=== PATIENT | female | born 1990 | race Caucasian/White ===

== ENCOUNTER 2016-05-16 21:46 | Inpatient (IN) | payer OTHER ==
[2016-05-16] MEDS ORDERED: OXYTOCIN IN LR 500 ML IV ONE (22:00)
[2016-05-16] MEDS ORDERED: LACTATED RINGERS 1,000 ML IV PRN (22:00)
[2016-05-16] MEDS ORDERED: MINERAL OIL 25 ML BOT ONE (22:04)
[2016-05-16] MEDS ORDERED: PUMP TUBING ONE (22:04)
[2016-05-16] MEDS ORDERED: LIDOCAINE Viscous 2% 15 ML UDCUP ONE (22:04)
[2016-05-16] MEDS ORDERED: LIDOCAINE 1% (PRES FREE) 30 ML VIAL ONE (22:04)
[2016-05-16] MEDS ORDERED: IV START KIT ONE (22:04)
[2016-05-16] MEDS ORDERED: OXYTOCIN 10 UNITS/ML VIAL ONE (22:04)
[2016-05-16] MEDS ORDERED: LIDOCAINE 1% 2 ML VIAL SUB-Q ONE (22:43)
[2016-05-16] MEDS ORDERED: LIDOCAINE 1% (PRES FREE) 30 ML VIAL SUB-Q ONE (22:44)
[2016-05-16] MEDS ORDERED: HYDROCORTISONE ACETATE 25 MG PR PRN (23:06)
[2016-05-16 23:07] LABS: AMPHETAMINES/METHAMPHETAMINES NEGATIVE (NEGATIVE); COCAINE NEGATIVE (NEGATIVE); MARIJUANA NEGATIVE (NEGATIVE); METHADONE NEGATIVE (NEGATIVE); OPIATES NEGATIVE (NEGATIVE); TRICYCLIC ANTIDEPRESSANTS NEGATIVE (NEGATIVE)
[2016-05-16] MEDS ORDERED: LANOLIN 50 APPLIC/7G TUBE TP PRN (23:17)
[2016-05-16] MEDS ORDERED: HYDROCODONE/ACETAMINOPHEN 5/325MG TABLET PO PRN (23:17)
[2016-05-16] MEDS ORDERED: BENZOCAINE/MENTHOL 60 APPLIC/BOT TP PRN (23:17)
--- NOTE | 2016-05-16 23:23 | PCMDEL ---
Delivery Note - Labor 1st stage (hr/min):: 2 hours 2nd stage (hr/min):: 3 mins 3rd stage (hr/min):: 6 mins Pushed (hr/min):: 3 mins - Delivery Delivery (Date): 05/16/16 Delivery (Time): 22:15 Infant Gender: Female Position: OP Umbilical Cord: 3 Vessel Delayed Cord Clamping:: > 3 min 1 Minute Total: 8 5 Minute Total: 9 Placenta:: intact, joan EBL:: 400 Perineum:: 1st degree perineal Suture:: 3-0 Vicryl Anesthesia/Meds:: Epinephrine Length ROM:: 3 mins Comments:: Vaginal Delivery Note: Stage I: Patient is a 25 year-old with an RUBA of 05/09/16 who presents to L&D at 41 weeks and 0 days gestation. Her care has been complicated by history of genital herpes with a non-primary outbreak at 20 weeks and on prophylaxis treatment starting at 36 weeks, RH Neg, rectal abcess and hemorrhoids. She has a hx of meth use and a UDS was done. Her GBS screen was negative. The patient was admitted on 05/16/16 22:00. Membranes ruptured on 05/16/2016 at 22:12 for clear fluid. Active labor progress was rapid. Onset for active labor was approx 20:00hrs when the patient called with ctxs every 4 mins. Pt was advised to see if they continued to become stronger and maintain regularlity and at that point come in to the hospital. She was 7/100/. Induction/augmentation agents: membrane sweep in clinic today heart rate tracing revealed category 1 tracing although minimal was obtained due to rapid progress. She was complete at 22:12. Anesthesia: Epinephrine Stage II: Second stage was approximately 3 minutes in duration. She went on to effective spontaneous vaginal delivery vertex; baby restituted to ROP, No nuchal cord. Remainder of baby delivered without complications. No shoulder dystocia evident. An episiotomy was not performed. Delayed cord clamping of > one minute undertaken. A female baby was born at 22:15. Birthweight was pending. scores were 8 at one minute and 9 at five minutes. Stage III: Third stage was normal with spontaneous vaginal delivery of an intact placenta with a 3 vessel cord with central cord insertion. Her perineum and vagina were inspected and a 1st degree laceration was noted. This was repaired with vicryl 3-0 in usual fashion under local anesthesia. At the conclusion of the delivery the sponge and the needle count were correct. Estimated blood was 400 ml. Uterus firmed up nicely to 2 below umbilicus. Active management of third stage of labor was not initiated. Patient declined any narcotic medication so will take Ibuprofen for pain. Ice pack to perimeum for hemorrhoids and Anusol Suppository ordered. Complications: Precipitous delivery, direct OP, visual inspection of perineum at time of did not reveal any herpatic lesions,.
--- NOTE | 2016-05-16 23:48 | PCMAN ---
OB Admission Note - History : 2 Term: 1 : 0 Abortions (S&E): 0 Livin Gestational Age (weeks): 41 Days (#/7): 0 Admit Cervical Dilation:: 7 Admit Cervical Effacement (%):: 100 Membrane Status: Intact Labor Onset (Date): 05/16/16 Labor Onset (Time): 20:00 Contractions: Yes Contraction Frequency:: 4 mins Heart Rate:: 144 Status:: Cat 1 Summary of Course:: Vivienne arrived on labor and delivery at approx 21:46 with regular uterine ctxs and intact membranes. She was checked and found to be 7/100. Patient was admitted and requested an epidural, which she was unable to receive due to rapid progress. Patient progressed to complete very quickly and by 22:12 was complete with an urge to push. She started to push and her membranes ruptured for clear fluid. A viable female was born at 22:15. care was initiated at 13 weeks. Her care has been consistent throughout her . Weight gain of 30lbs. Normal anatomy scan. Medications include PNV and Acyclovir 400mg, PO, TID. 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 She had her last baby in group home and was unable to take her home. Currently she is clean and her UDS on 11/01 was negative 2) RH neg and received rhogam at 28 weeks 3) Hx of a primary outbreak of herpes in her last and a second outbreak at 20 weeks in this . Currently taking Acyclovir, 400mg, PO, TID 4) Rectal abscess 5) Hemorrhoids - Labs Blood Type: A (-) negative Rubella Status: Immune GBS Status: Negative Abnormal Labs: HSV Positive - Physical Exam Psych/Mental Status: Other (In active labor) Neurological: Grossly Intact, Alert HEENT: Atraumatic Cardiovascular: Regular Rate and Rhythm Genitourinary: Normal Female Genitalia, Other (Negative for herpatic lesions) Rectal Exam: Deferred, Other (Hemorrhoids) Extremities: Full ROM Skin: Normal Color, Warm, Dry, Intact - Problems (1) Active labor Status: Acute Code: [id number] Assessment/Plan: A/ at 41 weeks in active labor GBS neg RH neg Cat 1 FHR P/ Anticipate imminent vaginal
[2016-05-17] MEDS: IBUPROFEN 800 MG TABLET PO SCH ×3 (00:06→16:06)
[2016-05-17 00:30] VITALS: BMI 32.1
[2016-05-17] MEDS ORDERED: RHOGAM 300 MCG SYRINGE IM ONE (06:58)
[2016-05-17 07:24] LABS: HEMATOCRIT 29.2 % (37.0-47.0); HEMOGLOBIN 9.8 gm/l (12.0-16.0)
[2016-05-17] MEDS: DOCUSATE SODIUM 100 MG CAPSULE PO PRN (07:50)
--- NOTE | 2016-05-17 11:13 | PDOC44 ---
- Subjective Day: 1 Vivienne had a good night. Baby nursed a lot. She is latching well, with some mild tenderness noted. Discussed treatment for her hemorrhoids which are not too painful this morning she says. Ordered Tucks and Anusol supp. She is taking Ibuprofen for mild cramping. Her H/H was low this morning at 9.6, so will order iron for home. Ambulating, eating and voiding. Plans to go home to her [id number]. Reports , Reports Lochia Light, Reports Tolerating Regular Diet - Objective Temp Pulse Resp BP Pulse Ox 98.0 F 80 16 106/68 05/17/16 07:50 05/17/16 07:50 05/17/16 07:50 05/17/16 07:50 Lab Results 05/17/16 06:46 Hgb 9.8 L Hct 29.2 L Current Medications Generic Name Dose Route Start Last Admin Trade Name Freq PRN Reason Stop Dose Admin Acetaminophen/Hydrocodone Bitart 1 - 2 tab 05/16/16 23:17 [place] 5/325 PO Q4H PRN Pain (Moderate) Benzocaine/Menthol 1 applic 05/16/16 23:17 Dermoplast TP PRN PRN Patient Comfort Docusate Sodium 100 mg 05/16/16 23:17 05/17/16 07:50 Colace PO 100 mg DAILY PRN Administration Comfort Emollient Ointment 1 applic 05/16/16 23:17 [id number] TP PRN PRN sore nipples Hydrocortisone Acetate 25 mg 05/16/16 23:06 05/17/16 10:40 Anusol Hc IA 25 mg DAILY PRN Administration Patient Comfort Ibuprofen 800 mg 05/16/16 23:17 05/17/16 07:50 Motrin PO 800 mg Q8H STAN Administration Sodium Chloride 10 ml 05/17/16 01:00 05/17/16 10:38 Normal Saline 10ml Flush IV Not Given Q8HR STAN Sodium Chloride 10 ml 05/16/16 23:17 Normal Saline 10ml Flush IV PRN PRN IV Flush - Physical Exam General: Afebrile Psych/Mental Status: Mood/Affect Appropriate Neurological: Grossly Intact Cardiovascular: Regular Rate and Rhythm Breast: Soft, Skin intact, Tenderness Fundus: Firm Genitourinary: Normal Female Genitalia Lochia: Light Rectal Exam: Deferred Extremities: Full ROM Skin: Normal Color - Problems:Assessment/Plan (1) Active labor Status: Acute Assessment/Plan: A/ at 41 weeks in active labor GBS neg RH neg Cat 1 FHR P/ Anticipate imminent vaginal (2) Normal course Status: Acute Assessment/Plan: A/ Day 1 s/p vaginal Hemorrhoids P/ Treat hemorrhoids Consult with D/C home tomorrow
[2016-05-17] MEDS: FERROUS SULFATE (65 Fe) 325 MG TABLET PO SCH ×2 (11:56→22:01)
[2016-05-18] MEDS: IBUPROFEN 800 MG TABLET PO SCH ×2 (00:10→11:07)
[2016-05-18 10:04] VITALS: BP 116/70
--- NOTE | 2016-05-18 10:33 | PDOC39B ---
Hospital Course: ADMIT DATE: 05/16/16 DISCHARGE DATE: 05/16/16 ADMISSION DIAGNOSES: Active labor at term 1) a history of IV drug use with clean UDS through and on admission 2) RH neg and received rhogam at 28 weeks 3) Hx of a primary outbreak of herpes in her last and a second outbreak at 20 weeks in this . Currently taking Acyclovir, 400mg, PO, TID 4) Rectal abscess 5) Hemorrhoids PROCEDURES: 1st degree perienal laceration, repaired HISTORY OF PRESENT ILLNESS: 25 year old G2 T1 L1 at 41 weeks 0 days presenting with spontaneous active labor at term. She progressed quickly to complete and delivered a vigorous female infant unmedicated shortly after admission. Apgars, 8,9 weigght 9lbs 5oz. !st degree perineal laceration was repaired. HOSPITAL COURSE: The patient-'s hospital course has been complicated with anemia , cracked nipples, and hemorrhoids. CBC showed Hgb 9.8, anemia. Has started takign PO iron and will be followed up She is receiving support from to assist with deep latch and eliminate pain and friction with feeds. Discussed making niple ointment at home with neosporin and 1% hydrocortisone cream to apply to nipples after feeds to prevent infection. was up most of the night wanting to feed last night. Hemorrhoids are visualized. Full, but not thrombosed. By day of discharge the patient is ambulating, eating, voiding, and passing flatus without difficulty. Pain is controlled with ibuprofen and lochia is appropriate. - Physical Exam Vital Signs: Temp Pulse Resp BP Pulse Ox 98.7 F 90 16 126/62 05/18/16 09:47 05/18/16 09:47 05/18/16 09:47 05/18/16 02:15 General: Afebrile Psych/Mental Status: Mood/Affect Appropriate, Judgment/Insight Intact, Bonding Well Neurological: Grossly Intact, Alert, Oriented x 4 HEENT: Atraumatic Lungs: Clear to Auscultation Bilaterally Cardiovascular: Regular Rate and Rhythm, Normal S1, Normal S2 Breast: Soft, Nipples Cracked (with small blisters) Fundus: Firm, Midline, Below Umbilicus Genitourinary: Normal Female Genitalia, Other (laceration well-approximated) Lochia: Light Rectal Exam: Other (visualization of several hemorrhoids present <0.5cm each) - Discharge Diagnosis (1) Anemia Qualifiers: Anemia type: iron deficiency Iron deficiency anemia type: other iron deficiency Qualifier Code: (D50.8) Other iron deficiency anemias Status : Acute (2) Normal course Status: Acute Assessment/Plan: A/ Day 2 s/p vaginal Hemorrhoids Anemic P/ Treat hemorrhoids with OTC pads and creams Consult with , follow with appt with [facility]AB[facility] clinic to support good latch Apply nipple cream as discussed to help prevent infection. Continue taking PO iron supplement. Discussed D/c-ing acyclovir now that she is psotpartum D/C home today Midwifery 'After the ' handout given and reviewed with patient. RTC in 2 weeks and 6 weeks for PP care. - Discharge Plan Condition: Stable Disposition: Home Instruction Forms: Vaginal Discharge Instructions Discharge Medications: Continue with ibuprofen as needed for pain Go to [facility] and pick remover one tube of neosporin and one tube of 1% hydrocortisone cream. Mix in equal amounts and apply scant amount to cracked and blistered nipples after each feed. If using scant amount, and >20 minutes between feeds, no need to wash off before next feed. Continue taking PO iron supplement for 6wPP. Follow-Up: Joi Lewis CNM [Certified Nurse Medical Economics Consultant] - As scheduled ([place] May 29, 2016 at 2:40pm)
[2016-05-18] MEDS: FERROUS SULFATE (65 Fe) 325 MG TABLET PO SCH (11:06)
[2016-05-18] MEDS: DOCUSATE SODIUM 100 MG CAPSULE PO PRN (11:06)
[2016-05-19 15:39] LABS: HEPATITUS C VIRUS ANTIBODY Non React (Non React)
== END 2016-05-18 13:11 | disposition home or self-care (01) | DRG 774 ==
LOC: FBCOUT 21:46 → FBC 21:46 → FBCOUT 22:00 → FBC 22:00
PROVIDERS: ADMIT Advanced Practice Midwife; ATTEND Advanced Practice Midwife
PROC: 10E0XZZ Delivery of Products of Conception, External Approach (ICD-10-PCS; principal; 2016-05-16)
PROC: 0HQ9XZZ Repair Perineum Skin, External Approach (ICD-10-PCS; 2016-05-16)
DX: O48.0 Post-term pregnancy (principal); O98.32 Other infections with a predominantly sexual mode of transmission complicating childbirth; O22.43 Hemorrhoids in pregnancy, third trimester; O36.0930 Maternal care for other rhesus isoimmunization, third trimester, not applicable or unspecified; A60.00 Herpesviral infection of urogenital system, unspecified; O62.3 Precipitate labor; O70.0 First degree perineal laceration during delivery; Z79.899 Other long term (current) drug therapy; O90.81 Anemia of the puerperium; D50.9 Iron deficiency anemia, unspecified; O92.13 Cracked nipple associated with lactation; Z87.891 Personal history of nicotine dependence; Z86.19 Personal history of other infectious and parasitic diseases; Z3A.41 41 weeks gestation of pregnancy; Z37.0 Single live birth

== ENCOUNTER 2016-05-23 14:57 | Outpatient (CLI) | payer OTHER | END 2016-05-23 14:58 | disposition home or self-care (01) | LOC: BABIESSH 14:57 | PROVIDERS: ATTEND Advanced Practice Midwife | DX: Z39.1 Encounter for care and examination of lactating mother (principal) ==